=== PATIENT | male | born 1940 | race Caucasian/White ===

== ENCOUNTER 2019-12-18 19:48 | Inpatient (IN) | payer OTHER ==
[2019-12-18 21:27] LABS: Absolute Lymphocytes (CBC) 0.5 K/uL (0.7-4.9); Basophils % 0.2 % (0-1.3); Hematocrit 32.4 % (39.6-49.0); Lymphocytes % 5.6 % (15.3-44.8); MPV 8.5 fL (7.6-11.3)
[2019-12-18 21:31] LABS: Protime INR 1.16
--- NOTE | 2019-12-18 21:40 | ER ---
Nurse's Notes [facility] Name: Elsa Sloan Age: 79 yrs Sex: Male : 1940 Arrival Date: 12/18/2019 Time: 19:50 Bed 17 Private MD: Diagnosis: Pneumonia due to other specified bacteria Presentation: 12/17 19:42 Chief complaint: EMS states: Patient c/o SOB x1 month and cough. He quit smoking 1 week ah ago. Coronavirus screen: Surgical mask placed on patient. Patient moved to private room, placed in contact and droplet isolation with eye protection until further assessment. Patient reports a cough. Patient reports shortness of breath or difficulty breathing. Patient denies measured and/or subjective temperature greater than 100.4F prior to today's visit. Patient denies travel on a cruise ship or to a country the [facility] currently lists as an affected area. Patient denies contact with known and/or suspected case of COVID-19. Ebola Screen: No symptoms or risks identified at this time. Initial Sepsis Screen: Does the patient meet any 2 criteria? HR > 90 bpm. Does the patient have a suspected source of infection?. Risk Assessment: Do you want to hurt yourself or someone else? Patient reports no desire to harm self or others. Onset of symptoms is unknown. Care prior to arrival: Medication(s) given: Normal saline infusion, 200ml 2mg Mag, 125 solumedrol IV initiated. 18 GA, in the right antecubital area, Glucose check: 193 Oxygen administered. via a non-rebreather mask. 19:42 Method Of Arrival: EMS: [facility] 19:42 Acuity: IVET 3 Historical: - PMHx: 20:53 Diabetes - NIDDM; Hypertension; Atrial Fib; blind; ah - Immunization history:: Adult Immunizations unknown. - Social history:: Smoking status: pt quit smoking 1 1/2 weeks ago. Screenin:31 Abuse screen: Denies threats or abuse. Nutritional screening: No deficits noted. Tuberculosis screening: No symptoms or risk factors identified. Fall Risk Secondary diagnosis (15 points) impaired mobility, blind. IV access (20 points). Mental Status- Overestimates/Forgets Limitations (15 pts.). Total Arreguin Fall Scale indicates High Risk Score (45 or more points). Assessment: 21:00 General: Appears uncomfortable, Behavior is cooperative, appropriate for age, anxious. Pain: Complains of pain in chest. Neuro: Level of Consciousness is awake, alert, obeys commands, Oriented to person, place, time, situation, Appropriate for age. Cardiovascular: Capillary refill < 3 seconds Patient's skin is warm and dry. Pulses are palpable in right radial artery and left radial artery Rhythm is atrial fibrillation with rapid ventricular response. Respiratory: Reports shortness of breath at rest Airway is patent Respiratory effort is even, labored, Respiratory pattern is regular, symmetrical. GI: Abdomen is distended, Last BM was December 18, 2019. Bowel sounds present X 4 quads. Reports bloating. Derm: Skin is intact, Wound noted coccyx and gluteal cleft Wound is Red. Vital Signs: 19:42 BP 129 / 75; Pulse 110; Resp 21; Temp 98.1; Pulse Ox 100% on 4 lpm NC; Weight 77.11 kg; Height 6 ft. 0 in. (182.88 cm); Pain 5/10; 20:00 BP 125 / 92; Pulse 124; Resp 26; Pulse Ox 90% ; ah 21:00 BP 141 / 94; Pulse 118; Resp 27; Pulse Ox 98% ; 22:00 BP 110 / 60; Pulse 113; Resp 25; Pulse Ox 99% ; 22:30 BP 118 / 66; Pulse 113; Resp 23; Pulse Ox 99% on 2.5 lpm NC; 19:42 Body Mass Index 23.06 (77.11 kg, 182.88 cm) ED Course: 19:50 Patient arrived in ED. cf2 20:15 Favian Solis MD is Attending Physician. snw 20:30 Nancy Conley, RN is Primary Nurse. 20:41 pt family called for update on pt. contact number son [phone]. daughter in law mw2 [phone]. 20:52 Triage completed. 21:05 Initial lab(s) drawn, by me, sent to lab. First set of blood cultures drawn by me, Flu jp3 and/or RSV swab sent to lab. Strep swab sent to lab. Maintain EMS IV. Dressing intact. Good blood return noted. Site clean \T\ dry. Gauge \T\ site: 20 gauge in RAC. 21:33 Notified ED physician of a critical lab result(s). Bandar Dimer [id number]. sg 21:38 Dimas Franco MD is Hospitalizing Provider. tw4 21:40 Inserted saline lock: 20 gauge in left antecubital area, using aseptic technique. Blood jp3 collected. 21:40 Second set of blood cultures drawn by ak, X-ray(s) taken. jp3 22:05 Extremity Venous Uni Ltd US In Process Unspecified. EDMS 22:24 CXR XRAY In Process Unspecified. EDMS 22:32 Patient has correct armband on for positive identification. Bed in low position. Call light in reach. Side rails up X2. ekg monitor tech on. Pulse ox on. NIBP on. 22:36 Warm blanket given. Verbal reassurance given. jp3 22:36 EKG done, by ED staff, reviewed by Favian Solis MD. Oxygen administration via nasal jp3 cannula \T\ 3L/min. 23:14 Notified ED physician of. sg 23:49 No provider procedures requiring assistance completed. Patient admitted, IV remains in place. Administered Medications: 22:14 Drug: Rocephin - (cefTRIAXone) 1 grams Route: IVPB; Infused Over: 30 mins; Site: right antecubital; 22:15 Drug: AZITHromycin 500 mg Route: IVPB; Infused Over: 1 hrs; Site: right antecubital; 23:39 Drug: Simethicone 240 mg Route: PO; Outcome: 21:39 Decision to Hospitalize by Provider. tw4 23:48 Admitted to [facility] accompanied by tech, room 405, with oxygen, with chart, Report called to NITA Boswell 23:48 Condition: stable 23:48 Instructed on the need for admit. 04 00:11 Patient left the ED. sg Signatures: Dispatcher [employer] EDMS Cam Pond, RN RN Farideh Duncan, CUSTOMS CONSULTANT-C CUSTOMS CONSULTANT-Csnw Favian Solis MD MD tw4 Brenna Hernandez2 Darron Moya jp3 Dimple Leigh 2 Nancy Conley RN RN
--- NOTE | 2019-12-18 21:40 | EDPHYS ---
Physician Documentation [facility] Name: Elsa Sloan Age: 79 yrs Sex: Male : 1940 Arrival Date: 12/18/2019 Time: 19:50 Bed 17 Private MD: ED Physician Favian Solis HPI: 12/18 04:04 This 79 yrs old Male presents to ER via EMS with complaints of Breathing tw4 Difficulty. 04:04 The patient has shortness of breath at rest. tw4 04:08 Onset: The symptoms/episode began/occurred 1 month(s) ago, and became worse yesterday. tw4 Duration: The symptoms are continuous, and are steadily getting worse. The patient's shortness of breath is aggravated by coughing, exertion, is alleviated by nothing. Associated signs and symptoms: Pertinent positives: productive cough, Pertinent negatives: chest pain. Severity of symptoms: At their worst the symptoms were moderate in the emergency department the symptoms are unchanged. The patient has not experienced similar symptoms in the past. Historical: - PMHx: 12/17 20:53 Diabetes - NIDDM; Hypertension; Atrial Fib; blind; ah - Immunization history:: Adult Immunizations unknown. - Social history:: Smoking status: pt quit smoking 1 1/2 weeks ago. ROS: 12/18 04:08 Constitutional: Negative for fever, chills, and weight loss, Eyes: Negative for injury, tw4 pain, redness, and discharge, Cardiovascular: Negative for chest pain, palpitations, and edema, Abdomen/GI: Negative for abdominal pain, nausea, vomiting, diarrhea, and constipation, Back: Negative for injury and pain, MS/Extremity: Negative for injury and deformity, Skin: Negative for injury, rash, and discoloration, Neuro: Negative for headache, weakness, numbness, tingling, and seizure. Respiratory: Positive for cough, dyspnea on exertion, shortness of breath, Negative for Exam: 04:08 Chest/axilla: Normal chest wall appearance and motion. Nontender with no deformity. tw4 No lesions are appreciated. Cardiovascular: Regular rate and rhythm with a normal S1 and S2. No gallops, murmurs, or rubs. Normal PMI, no JVD. No pulse deficits. 04:08 Back: No spinal tenderness. No costovertebral tenderness. Full range of motion. MS/ Extremity: Pulses equal, no cyanosis. Neurovascular intact. Full, normal range of motion. Neuro: Awake and alert, GCS 15, oriented to person, place, time, and situation. Cranial nerves II-XII grossly intact. Motor strength 5/5 in all extremities. Sensory grossly intact. Cerebellar exam normal. Normal gait. 04:08 Constitutional: The patient appears alert, awake, frail, in obvious distress, moderately distressed, pale, uncomfortable. 04:08 Respiratory: mild respiratory distress is noted, Respirations: labored breathing, Breath sounds: decreased breath sounds, that are mild, are heard in the right posterior middle lobe and right posterior lower lobe. 04:08 Abdomen/GI: Inspection: distension, that is mild, Bowel sounds: diminished, Palpation: Vital Signs: 12/17 19:42 BP 129 / 75; Pulse 110; Resp 21; Temp 98.1; Pulse Ox 100% on 4 lpm NC; Weight 77.11 kg; Height 6 ft. 0 in. (182.88 cm); Pain 5/10; 20:00 BP 125 / 92; Pulse 124; Resp 26; Pulse Ox 90% ; ah 21:00 BP 141 / 94; Pulse 118; Resp 27; Pulse Ox 98% ; ah 22:00 BP 110 / 60; Pulse 113; Resp 25; Pulse Ox 99% ; 22:30 BP 118 / 66; Pulse 113; Resp 23; Pulse Ox 99% on 2.5 lpm NC; 19:42 Body Mass Index 23.06 (77.11 kg, 182.88 cm) MDM: 21:37 Patient medically screened. tw4 12/18 04:08 Differential diagnosis: Bronchitis CHF exacerbation, Chronic Obstructive Pulmonary tw4 Disease Myocardial Infarction pneumonia, Pneumothorax pulmonary edema, Pulmonary Embolism reactive airway disease. Antibiotic administration: Rocephin and Zithromax given. Data reviewed: vital signs, nurses notes. Data reviewed: lab test result(s), cardiac enzymes, troponin i, CBC, electrolytes, Flu: negative hepatic panel, EKG, radiologic studies, CT scan, plain films, ultrasound. Data interpreted: Pulse oximetry: Interpretation: hypoxia. Plan: O2 by NC applied. Test interpretation: by ED physician or midlevel provider: ECG, plain radiologic studies. Counseling: I had a detailed discussion with the patient and/or guardian regarding: the historical points, exam findings, and any diagnostic results supporting the discharge/admit diagnosis, lab results, radiology results. Physician consultation: Dimas Franco MD was contacted at 22:05, regarding admission, to the telemetry unit. patient's condition, and will see patient in inpatient room. 12/17 20:28 Order name: Blood Culture Adult (2) 12/17 20:28 Order name: BMP; Complete Time: 23:02 12/17 20:28 Order name: C-Reactive Protein; Complete Time: 23:02 12/17 20:28 Order name: CBC with Diff; Complete Time: 23:02 12/17 20:28 Order name: COVID-19 12/17 20:28 Order name: D-Dimer; Complete Time: 23:02 12/17 20:28 Order name: Ferritin; Complete Time: 23:02 12/17 20:28 Order name: Flu 12/17 20:28 Order name: Lactate; Complete Time: 23:02 12/17 20:28 Order name: LFT's; Complete Time: 23:02 12/17 20:28 Order name: Lipase; Complete Time: 23:02 12/17 20:28 Order name: Procalcitonin; Complete Time: 23:02 12/17 20:28 Order name: PT-INR; Complete Time: 23:02 12/17 20:28 Order name: Ptt, Activated; Complete Time: 23:02 12/17 20:28 Order name: Strep 12/17 20:28 Order name: Troponin (emerg Dept Use Only); Complete Time: 23:02 12/17 20:28 Order name: Urine Microscopic Only 12/17 20:28 Order name: CXR XRAY 12/17 20:28 Order name: EKG; Complete Time: 20:29 12/17 20:28 Order name: Cardiac monitoring; Complete Time: 22:28 12/17 20:28 Order name: Document PUI# 12/17 20:28 Order name: Droplet/Contact Precautions; Complete Time: 22:28 12/17 20:28 Order name: EKG - Nurse/Tech; Complete Time: 22:28 12/17 20:53 Order name: Extremity Venous Uni Ltd US tw4 12/17 21:31 Order name: Manual Differential; Complete Time: 23:02 EDPR 12/17 22:47 Order name: CONS Physician Consult EDPR 12/17 20:28 Order name: IV Start; Complete Time: 22:29 tw4 12/17 20:28 Order name: Labs collected and sent; Complete Time: 22:29 tw4 12/17 20:28 Order [phone]/ tw4 12/17 20:28 Order name: O2 Per Protocol; Complete Time: 21:58 tw4 12/17 20:28 Order name: O2 Sat Monitoring; Complete Time: 21:58 tw4 EC:08 Rate is 112 beats/min. Rhythm is irregularly irregular with Right bundle branch block. tw4 QRS [place] is Normal. AL interval is normal. QRS interval is normal. QT interval is normal. No Q waves. T waves are Normal. No ST changes noted. Clinical impression: Atrial Fibrillation. Interpreted by me. Reviewed by me. Administered Medications: 12/17 22:14 Drug: Rocephin - (cefTRIAXone) 1 grams Route: IVPB; Infused Over: 30 mins; Site: right ah antecubital; 22:15 Drug: AZITHromycin 500 mg Route: IVPB; Infused Over: 1 hrs; Site: right antecubital; 23:39 Drug: Simethicone 240 mg Route: PO; Disposition: 12/18/19 21:39 Hospitalization ordered by Dimas Franco for Inpatient Admission. Preliminary diagnosis is Pneumonia due to other specified bacteria. - Bed requested for Telemetry/MedSurg (Inpatient). - Status is Inpatient Admission. sg - Condition is Stable. - Problem is new. - Symptoms have improved. Signatures: Dispatcher [employer] EDPR Raisa Smith RN RN Cam Pond RN RN sg Therrien, Shelly, FNP-C LEATHA-Favian Brar MD MD tw4 Nancy Conley RN RN Corrections: (The following items were deleted from the chart) 22:00 21:39 Hospitalization Ordered by Dimas Franco MD for Inpatient Admission. Preliminary diagnosis is Pneumonia due to other specified bacteria. Bed requested for Telemetry/MedSurg (Inpatient). Status is Inpatient Admission. Condition is Stable. Problem is new. Symptoms have improved. tw4 22:28 20:28 Joya ordered. tw4 12/18 00:11 12/17 22:00 12/18/2019 21:39 Hospitalization Ordered by Dimas Franco MD for Inpatient sg Admission. Preliminary diagnosis is Pneumonia due to other specified bacteria. Bed requested for Telemetry/MedSurg (Inpatient). Status is Inpatient Admission. Condition is Stable. Problem is new. Symptoms have improved. mw
[2019-12-18 21:50] LABS: ALT/SGPT 121 U/L (12-78); AST/SGOT 146 U/L (15-37); Albumin 2.8 g/dL (3.4-5.0); Alkaline Phosphatase 110 U/L (45-117); BUN Blood Urea Nitrogen 95 mg/dL (7-18); Bicarbonate 19 mmol/L (21-32); Bilirubin Direct < 0.1 mg/dL (0-0.2); Bilirubin Total 0.2 mg/dL (0.2-1.0); Glucose Level 190 mg/dL (74-106); Lipase 43 U/L (73-393); Potassium 5.3 mmol/L (3.5-5.1); Sodium Level 133 mmol/L (136-145); Troponin (Emerg Dept Use Only) < 0.02 ng/mL (0.0-0.045)
[2019-12-18] MEDS ORDERED: NA CHLORIDE 0.9% 250 ML ONE (22:11)
[2019-12-18] MEDS ORDERED: CEFTRIAXONE/SWI 1gm 1 GM/10 ML SYR ONE (22:11)
[2019-12-18] MEDS ORDERED: AZITHROMYCIN 500 MG INJ IVPB ONE (22:11)
[2019-12-18 22:26] LABS: Blood Morphology Comment NOTED (NOT SEEN); Burr Cells 1+; Elliptocytes 1+; Platelet Estimate ADEQ; Poikilocytosis 1+; Teardrop Cell 1+
[2019-12-18] MEDS ORDERED: ONDANSETRON 4 MG/2 ML VIAL IV PRN (22:41)
[2019-12-18] MEDS ORDERED: ACETAMINOPHEN 500 MG TAB PO PRN (22:41)
[2019-12-18] MEDS ORDERED: NA CHLORIDE 0.9% 1,000 ML IV SCH (23:00)
[2019-12-18] MEDS ORDERED: SIMETHICONE 80 MG TAB ONE ×2 (23:45→23:46)
[2019-12-19 00:33] VITALS: BMI 26.8
[2019-12-19] MEDS ORDERED: dexAMETHasone 10 MG/ML VIAL IV SCH (01:00)
[2019-12-19] MEDS: TEMAZEPAM 15 MG CAP PO PRN (01:42)
[2019-12-19] MEDS ORDERED: ENOXAPARIN 40 MG/0.4 ML SQ SCH ×3 (02:00→09:00)
[2019-12-19] MEDS ORDERED: ENOXAPARIN 40 MG/0.4 ML SQ ONE (02:00)
[2019-12-19 02:29] LABS: Urine Appearance CLEAR; Urine Bilirubin NEGATIVE (NEG); Urine Blood NEGATIVE (NEG); Urine Color YELLOW; Urine Glucose NEGATIVE (NEG); Urine Protein TRACE (NEG); Urine Specific Gravity 1.015 (1.005-1.030); Urine Urobilinogen 0.2 mg/dL (0.2-1.0); Urine pH 5.5 (5.0-7.0)
[2019-12-19 02:33] LABS: Urine Microscopic Reflex ORDER UMIC
[2019-12-19 02:34] LABS: Urine Bacteria <20 /HPF (NONE SEEN); Urine Culture Reflex Order NOT NEEDED; Urine RBC <5 /HPF (NONE SEEN)
[2019-12-19] MEDS: MORPHINE 2 MG/ML SYR IV PRN ×2 (02:45→13:39)
[2019-12-19 06:14] LABS: Absolute Lymphocytes (CBC) 0.5 K/uL (0.7-4.9); Basophils % 0.3 % (0-1.3); Hematocrit 31.2 % (39.6-49.0); Lymphocytes % 5.6 % (15.3-44.8); MPV 8.4 fL (7.6-11.3); RBC Red Blood Cell Count 3.62 M/uL (4.33-5.43)
[2019-12-19 06:15] LABS: Protime INR 1.18
[2019-12-19 06:31] LABS: ALT/SGPT 122 U/L (12-78); AST/SGOT 103 U/L (15-37); Albumin 2.8 g/dL (3.4-5.0); Alkaline Phosphatase 109 U/L (45-117); BUN Blood Urea Nitrogen 102 mg/dL (7-18); Bicarbonate 19 mmol/L (21-32); Bilirubin Total 0.2 mg/dL (0.2-1.0); Glucose Level 216 mg/dL (74-106); HDL Cholesterol 50 mg/dL (40-60); LDL Cholesterol, Calculated 29 (<130); Magnesium 2.8 mg/dL (1.8-2.4); NT PRO-BNP 3306 pg/mL (<450); Phosphorus 7.9 mg/dL (2.5-4.9); Sodium Level 133 mmol/L (136-145); Troponin I < 0.02 ng/mL (0.0-0.045)
[2019-12-19 06:45] LABS: Potassium 5.8 mmol/L (3.5-5.1)
--- NOTE | 2019-12-19 08:01 | P.HP ---
Certification for Inpatient Patient admitted to: Inpatient With expected LOS: >2 Midnights Patient will require the following post-hospital care: None Practitioner: I am a practitioner with admitting privileges, knowledge of patient current condition, hospital course, and medical plan of care. Services: Services provided to patient in accordance with Admission requirements found in Title 42 Section 412.3 of the Code of Federal Regulations Patient History Date of Service: 12/19/19 Reason for admission: COVID-19 pneumonia & acute on chronic renal insufficiency History of Present Illness: Patient is a 79-year-old gentleman who is a poor historian and really did not talk to me much at all. The nurse stated he had gotten medications that made him lethargic. Patient presents to the hospital with upper respiratory symptoms. Patient has been coughing and has been congested. Patient was brought into the emergency room per family. Patient denies any sick contacts. He lives with his . Patient was placed on 3 L of oxygen and his oxygen saturations came up to 92%. Patient also has renal insufficiency. He was on IV fluids but he had looks like he has a mildly elevated JVP so I will stop his IV fluids. Patient is also on dexamethasone so will monitor uremic level as well as potassium level closely. Patient will be consulted with Pulmonary and Nephrology. Allergies No Known Allergies Allergy (Verified 08/27/17 14:28) - Past Medical/Surgical History Has patient received pneumonia vaccine in the past: No Diabetic: Yes -: DM -: HTN -: Afib -: blind -: appendectomy - Family History Mother Medical History: Diabetes - Social History Smoking Status: Former smoker Alcohol use: No CD- Drugs: No Caffeine use: Yes Place of Residence: Home Review of Systems Difficult to obtain as he is not interacting much Physical Examination - Vital Signs Temperature: 97.3 F Blood Pressure: 106/68 Pulse: 95 Respirations: 22 Pulse Ox (%): 95 - Physical Exam General: Alert, In no apparent distress, Oriented x1, Other (Does not really talk much per the nurse stated that he does answer her questions appropriately; he is blind) HEENT: Atraumatic, PERRLA, Mucous membr. moist/pink, EOMI, Sclerae nonicteric Neck: Supple, 2+ carotid pulse no bruit, No LAD, Without JVD or thyroid abnormality Respiratory: Diminished, Expiratory wheezes Cardiovascular: Normal S1 S2, Irregular heart rate/rhythm, Systolic murmur Gastrointestinal: Normal bowel sounds, Soft and benign, No tenderness, Distended Musculoskeletal: No clubbing, No tenderness, Swelling Integumentary: No rashes Neurological: Normal speech, Normal tone, Sensation intact, Cranial nerves 3-12 intact, Normal affect, Abnormal strength Lymphatics: No axilla or inguinal lymphadenopathy - Studies Laboratory Data (last 24 hrs) 12/18/19 21:05: PT 13.6 H, INR 1.16, APTT 28.3 12/18/19 21:05: WBC 9.8, Hgb 10.5 L, Hct 32.4 L, Plt Count 305 12/18/19 21:05: Sodium 133 L, Potassium 5.3 H, BUN 95 H, Creatinine 3.53 H, Glucose 190 H, Total Bilirubin 0.2, AST 146 H, ALT 121 H, Alkaline Phosphatase 110, Lipase 43 L Microbiology Data (last 24 hrs): 12/18/19 20:32 Nasopharnyx Influenza Type A Antigen Screen - Final 12/18/19 20:32 Nasopharnyx Influenza Type B Antigen Screen - Final 12/18/19 20:32 Throat Group A Streptococcus Rapid Screen - Final Assessment & Plan - Problems (Diagnosis) (1) COVID-19 virus test result unknown Current Visit: Yes Status: Acute (2) Upper respiratory infection Current Visit: Yes Status: Acute (3) Acute renal insufficiency Current Visit: Yes Status: Acute (4) Elevated JVP (jugular venous pressure) Current Visit: Yes Status: Acute (5) Hyperkalemia Current Visit: Yes Status: Acute (6) History of atrial fibrillation Current Visit: Yes Status: Acute (7) Blind Current Visit: Yes Status: Acute (8) Difficulty hearing Current Visit: Yes Status: Acute - Plan 1. Continue with IV antibiotics 2. Awaiting COVID-19 testing 3. Repeat chest x-ray is symptoms are progressively worsening 4. High-flow oxygen or if not available adjust oxygen as necessary; prone position; 5. Pulmonary consultation and Nephrology 6. Continue with albuterol inhaler therapy; IV dexamethasone; zinc and bayaone-M-rdkmkeg dexamethasone use in a patient with renal insufficiency and hyperkalemia 7. O2 per protocol 8. Patient JVP was elevated so I Hep-Lock IV 9. Repeat labs including D-dimer, ferritin, and CRP and renal function; renal ultrasound pending as well 10. Monitor cardiac status. Patient with a history of atrial fibrillation; check BNP level 11. GI and DVT prophylaxis Discharge Plan: Home Plan to discharge in: Greater than 2 days - Advance Directives Does patient have a Living Will: No Does patient have a Durable POA for Healthcare: No - Code Status/Comfort Care Code Status Assessed: Yes Code Status: Full Code Critical Care: No Time Spent Managing PTS Care (In Minutes): 45
--- NOTE | 2019-12-19 08:56 | EKG ---
Test Date: 2019-12-18 Test Time: 22:23:12 Police Communications Operator: KACI MEASUREMENT RESULTS: Intervals: Rate: 112 AR: QRSD: 136 QT: 342 QTc: 466 [place]: P: AR: QRS: 51 T: -6 INTERPRETIVE STATEMENTS: Atrial fibrillation with rapid ventricular response Right bundle branch block Abnormal ECG Compared to ECG 08/27/2017 13:40:50 Sinus rhythm no longer present Ventricular premature complex(es) no longer present Electronically Signed On 12-19-19 08:55:10 CDT by Tyree Mark
[2019-12-19] MEDS ORDERED: NA CHLORIDE 0.9% 1,000 ML IV SCH (09:00)
[2019-12-19] MEDS ORDERED: AZITHROMYCIN IV 500 MG in NA CHLORIDE 0.9% 250 ML IVPB SCH (09:00)
[2019-12-19] MEDS ORDERED: CEFTRIAXONE/SWI 1gm 1 GM/10 ML SYR IVP SCH (09:00)
[2019-12-19] MEDS ORDERED: dexAMETHasone 4 MG/ML VIAL IV SCH (09:00)
[2019-12-19] MEDS ORDERED: ENOXAPARIN 30 MG/0.3 ML SQ SCH (09:00)
[2019-12-19] MEDS ORDERED: SOD POLYSTYREN SUL 15 GM/60 ML UCUP PO ONE (09:00)
[2019-12-19] MEDS ORDERED: CEFTRIAXONE 1 GM/NS 50 ML 1 GM/50 ML BAG IV SCH (09:00)
[2019-12-19] MEDS: Levofloxacin 250mg IV 250 MG/50 ML BAG IV SCH (10:21)
[2019-12-19] MEDS: ASCORBIC ACID 500 MG TABLET PO SCH (10:22)
[2019-12-19] MEDS: ZINC SULFATE 220 MG CAP PO SCH ×2 (10:22→21:29)
--- NOTE | 2019-12-19 11:40 | CON ---
Date of Consultation: 12/19/2019 Reason For Consultation: Elevated BUN and creatinine, fluid management. History Of Present Illness: This is a pleasant 79-year-old gentleman with significant past medical h istory of hypertension, diabetes complicated with retinopathy, legally blind, no neuropathy, hyperten amauri, hyperlipidemia, AFib. Patient came to the hospital complaining of shortness of breath and coug h with sputum. No fever. No chills for the last couple of weeks. Patient's primary workup showed h ypoxemia, saturation down to 92 on 3 L and elevation in BUN and creatinine. For that reason, we have been consulted. Patient received IV fluid in the emergency room. Patient admits that he has been t aking ibuprofen 4 to 5 tablets daily for the last 2 to 3 months. Patient has nocturia 2 to 3 times. No hesitancy. No leg swelling. Patient had shortness of breath. The patient denied any recent hospitalization. Patient according to him is doing a regular lab every 3 months with his primary care doctor, Dr. Reyna without any problem. Past Medical History: 1.Diabetes. 2.Hypertension. 3.AFib. 4.Diabetes complicated with retinopathy, no neuropathy. Past Surgical History: Appendectomy. Family History: Positive for diabetes and hypertension. Social History: Ex-smoker. Denies alcohol. Denies drug abuse. Allergies: NO KNOWN DRUGS ALLERGY. Home Medications: Not available. Current Medications: In the hospital include vitamin C, breathing treatment, dexamethasone, ceftriax one, Levaquin, temazepam. Review of Systems: Head and Neck: No red eye. No ear pain. Legally blind. GI: No nausea. No vomiting. : No polyuria. No dysuria. No hematuria. BILINGUAL SPEECH THERAPIST: Not applicable. Respiratory: Has shortness of breath, has cough. Cardiovascular: No chest pain. Endocrine: No polydipsia. Skin: No rash. Neuro: Legally blind. Musculoskeletal: Generalized fatigue. Physical Examination: Vital Signs: Blood pressure 106/68, pulse of 95. Afebrile. Chest: Crackles bilateral, more permanent right-sided. Heart: S1, S2. Regular. Systolic murmur. Abdomen: Soft, nontender. Dullness on the suprapubic area with tenderness. No guarding or rebound. Extremities: No edema. Neurological: Alert. Legally blind. No focal. Laboratory Data: WBC 8.7, H and H /31.2, platelet 340. Sodium 133, potassium 5.8, bicarb 19, BUN 102, creatinine 3.3, GFR of 18, calcium 7.6, phosphorus 7.9, magnesium 2.8. BNP 3300. AST and ALT e levated. Reviewing the record for the patient, no available lab, only in the August 2017. At that ti me, creatinine 0.8 with GFR of 88. Chest x-ray showed showing cardiomegaly infiltration on the right side with over volume. Assessment And Plan: 1.Acute kidney injury, multifactorial, secondary to cardiorenal/ERIC secondary to nonsteroidal use, c omplicated with hyperkalemia and acidosis, over volume given the finding on the physical exam. Obstr uctive uropathy need to be ruled out. a.I am going to go ahead and do a bladder scan. b.We will discontinue IV fluid. c.I am going to give the patient Lasix today and we will follow up the patient. We will send for fu ll workup to rule out pulmonary, renal. 2.Acidosis secondary to renal failure. No need for bicarb right now. We will start diuresis and we will monitor. 3.Hyperkalemia secondary to renal failure. We will start the diuresis. 4.Congestive heart failure. We will get echocardiogram. 5.Pneumonia. Questionable coronavirus disease pneumonia. We will follow up with Pulmonary. Contin ue current antibiotic. 6.Chronic obstructive pulmonary disease exacerbation by the Pulmonary. Case discussed with the patient, verbalized understanding, discussed with the staff, agreed on the pl an. WAGNER/AYESHA Voice ID: [id number] Report ID: [id number]
--- NOTE | 2019-12-19 11:53 | P.CNS ---
Date of Consult: 12/19/19 Reason for Consult: Abnormal chest x-ray Chief Complaint: COVID-19 pneumonia & acute on chronic renal insufficiency History of Present Illness: Patient is 79 years of age a poor historian admitted to the hospital is been complaining of chronic dyspnea he is an active smoker just quit recently feeling weak complaining of cough congestion probably has underlying COPD has a nebulizer at home also has some renal failure patient denies any symptoms of fever or cough at home Allergies No Known Allergies Allergy (Verified 08/27/17 14:28) - Past Medical/Surgical History Diabetic: Yes -: DM -: HTN -: Afib -: blind -: appendectomy - Family History Mother Medical History: Diabetes - Social History Alcohol use: No CD- Drugs: No Caffeine use: Yes Place of Residence: Home Review of Systems General: Weakness Respiratory: Cough, Shortness of Breath Physical Examination Temp Pulse Resp BP Pulse Ox 97.3 F 95 H 22 H 106/68 95 12/19/19 08:08 12/19/19 08:08 12/19/19 08:08 12/19/19 08:08 12/19/19 08:08 General: Other (To for) Laboratory Data (last 24 hrs) 12/18/19 21:05: PT 13.6 H, INR 1.16, APTT 28.3 12/18/19 21:05: WBC 9.8, Hgb 10.5 L, Hct 32.4 L, Plt Count 305 12/18/19 21:05: Sodium 133 L, Potassium 5.3 H, BUN 95 H, Creatinine 3.53 H, Glucose 190 H, Total Bilirubin 0.2, AST 146 H, ALT 121 H, Alkaline Phosphatase 110, Lipase 43 L - Problems (1) Abnormal chest x-ray Current Visit: Yes Status: Acute Plan: Patient is 89 years of age admitted with shortness of breath. Chest x-ray is very abnormal shows a right mid zone opacity possibly lung cancer I have ordered a CT scan of the chest doubt perez virus infection vital signs are stable type suspect he has chronic renal failure is creatinine is very elevated so was is potassium will check a room air pulse ox ambulate patient he will need to be worked up as an outpatient discharged today after the CT scan
--- NOTE | 2019-12-19 12:07 | RAD REPORT ---
EXAM DESCRIPTION: US - Extremity Venous Uni Ltd - 12/18/2019 10:35 pm CLINICAL HISTORY: SWELLING Leg swelling and edema. COMPARISON: No comparisons FINDINGS: Right lower extremity venous system was interrogated with Doppler technique. Normal flow, compressibility and augmentation was noted. There is no DVT present. IMPRESSION: No evidence of right lower extremity deep venous thrombosis.
--- NOTE | 2019-12-19 12:24 | RAD REPORT ---
EXAM DESCRIPTION: RAD - Chest Single View - 12/18/2019 10:24 pm CLINICAL HISTORY: Cough;SOB Chest pain. COMPARISON: Outpt Chest Pa/Lat (2 Views) dated 08/27/2017 FINDINGS: Portable technique limits examination quality. Moderate airspace opacity is present in the right mid lung with reduced right lung volume seen. Pneum onia is a possibility. The left lung is grossly clear. The heart is moderately enlarged in size. No d isplaced fractures.
[2019-12-19] MEDS: FUROSEMIDE 40 MG/4 ML VIAL IV SCH (12:41)
[2019-12-19 14:23] LABS: Urine Appearance CLEAR; Urine Bilirubin NEGATIVE (NEG); Urine Blood NEGATIVE (NEG); Urine Color YELLOW; Urine Glucose NEGATIVE (NEG); Urine Protein TRACE (NEG); Urine Specific Gravity 1.015 (1.005-1.030); Urine Urobilinogen 0.2 mg/dL (0.2-1.0)
[2019-12-19 14:31] LABS: Urine Microscopic Reflex ORDER UMIC; Urine Protein/Creatinine Ratio 0.41 ratio (<0.15)
[2019-12-19 14:33] LABS: Urine Bacteria <20 /HPF (NONE SEEN); Urine Culture Reflex Order NOT NEEDED; Urine RBC <5 /HPF (NONE SEEN)
[2019-12-19 15:18] LABS: Potassium 5.9 mmol/L (3.5-5.1)
[2019-12-19] MEDS ORDERED: ALBUTEROL 2.5 MG/3 ML NEB SOL NEB ONE (16:48)
[2019-12-19] MEDS ORDERED: D50W 25 GM/50 ML SYRINGE/VIAL IV ONE (16:49)
[2019-12-19] MEDS ORDERED: D50W 25 GM/50 ML SYRINGE/VIAL IV PRN ×2 (16:50→19:25)
[2019-12-19] MEDS ORDERED: GLUCAGON 1 MG/VIAL IM PRN ×2 (16:50→19:25)
[2019-12-19] MEDS ORDERED: INSULIN -REGULAR HUMAN 50 UNIT/0.5 ML ML IV ONE (16:52)
--- NOTE | 2019-12-19 17:19 | RAD REPORT ---
EXAM DESCRIPTION: CT - Thorax Wo Con CLINICAL HISTORY: Chest pain Right lung mass COMPARISON: No comparisons FINDINGS: A moderate to large area of airspace consolidation is new right upper lobe extending from the right hilum. The areas of infiltrate extend into the right middle lobe and both posterior gutters . Loculated small right pleural effusion. Free-flowing small left pleural effusion. Moderate pericard ial fluid is seen. No pneumothorax. No bulky intrathoracic adenopathy. No concerning bony finding. No gross upper abdominal finding. All CT scans are performed using dose optimization technique as appropriate and may include automated exposure control or mA/KV adjustment according to patient size. IMPRESSION: Extensive right-sided pneumonia pattern is suspected. There is loculated right pleural e ffusion seen. Left base infiltrate is also present with a small left pleural effusion. Moderate pericardial effusio n.
[2019-12-19] MEDS: predniSONE 20 MG TAB PO SCH (21:29)
[2019-12-19] MEDS: INSULIN -REGULAR HUMAN 50 UNIT/0.5 ML ML SQ SCH (21:47)
[2019-12-20] MEDS ORDERED: ALBUMIN HUMAN 25% 100 ML IV ONE (01:01)
[2019-12-20] MEDS: ALBUTEROL INHALER 60 PUFF/8 GM IH PRN (05:44)
[2019-12-20] MEDS: FUROSEMIDE 40 MG/4 ML VIAL IV SCH ×2 (08:00→21:58)
[2019-12-20] MEDS: ASCORBIC ACID 500 MG TABLET PO SCH (08:00)
[2019-12-20] MEDS: MORPHINE 2 MG/ML SYR IV PRN (08:00)
[2019-12-20] MEDS: ENOXAPARIN 30 MG/0.3 ML SQ SCH (08:00)
[2019-12-20] MEDS: predniSONE 20 MG TAB PO SCH (08:00)
[2019-12-20] MEDS: Levofloxacin 250mg IV 250 MG/50 ML BAG IV SCH (08:00)
[2019-12-20] MEDS: ZINC SULFATE 220 MG CAP PO SCH ×2 (08:00→21:45)
[2019-12-20 08:22] LABS: RBC Red Blood Cell Count 3.42 M/uL (4.33-5.43)
[2019-12-20 08:39] LABS: Albumin 3.1 g/dL (3.4-5.0); Bilirubin Total 0.2 mg/dL (0.2-1.0); Protein, Total 7.1 g/dL (6.4-8.2)
[2019-12-20 08:40] LABS: Potassium 5.8 mmol/L (3.5-5.1)
[2019-12-20 08:41] LABS: Albumin 3.1 g/dL (3.4-5.0); BUN Blood Urea Nitrogen 110 mg/dL (7-18); Bicarbonate 21 mmol/L (21-32); Ferritin 44.7 ng/mL (26-388); Folic Acid, (Folate) 19.7 ng/mL (3.1-17.5); Glucose Level 249 mg/dL (74-106); Phosphorus 8.2 mg/dL (2.5-4.9); Potassium 5.8 mmol/L (3.5-5.1); Sodium Level 132 mmol/L (136-145); Transferrin 226 mg/dL (200-360); Troponin I < 0.02 ng/mL (0.0-0.045); Uric Acid 11.6 mg/dL (3.5-7.2)
[2019-12-20] MEDS: INSULIN -REGULAR HUMAN 50 UNIT/0.5 ML ML SQ SCH ×4 (08:45→22:11)
[2019-12-20] MEDS ORDERED: PNEUMOCOCCAL VACCINE 0.5 ML IMVAC ONE (09:00)
--- NOTE | 2019-12-20 10:24 | P.PN ---
Subjective Date of Service: 12/20/19 Chief Complaint: Lung mass Patient is still feeling very weak, short of breath worsening renal function hyperkalemia Review of Systems General: Weakness Respiratory: Cough, Shortness of Breath Gastrointestinal: Nausea Physical Examination - Vital Signs Temperature: 97.2 F Blood Pressure: 121/67 Pulse: 89 Respirations: 22 Pulse Ox (%): 93 - Physical Exam General: Alert, Moderate distress Respiratory: Expiratory wheezes Cardiovascular: No edema, Normal S1 S2 Assessment & Plan - Problems (Diagnosis) (1) Lung mass Current Visit: Yes Status: Acute Plan: I suspect patient has lung cancer CT scan reviewed is quite possible that this is a pneumonia continue with antibiotics poly need a bronchoscopy for failure to clear also has some pleural effusion made secondary to volume overload patient's perez virus test is pending (2) Acute renal insufficiency Current Visit: Yes Status: Acute Plan: Patient has renal failure seen by Nephrology hyperkalemia
[2019-12-20] MEDS ORDERED: SOD POLYSTYREN SUL 15 GM/60 ML UCUP PO ONE (11:00)
[2019-12-20] MEDS: DOXYCYCLINE 100 MG CAP PO SCH ×2 (11:59→21:45)
[2019-12-20] MEDS ORDERED: D50W 25 GM/50 ML SYRINGE/VIAL IV ONE (12:42)
[2019-12-20] MEDS ORDERED: D50W 25 GM/50 ML SYRINGE/VIAL IV PRN (12:43)
[2019-12-20] MEDS ORDERED: GLUCAGON 1 MG/VIAL IM PRN (12:43)
[2019-12-20] MEDS ORDERED: INSULIN -REGULAR HUMAN 50 UNIT/0.5 ML ML IV ONE (13:30)
[2019-12-20] MEDS ORDERED: SOD FERRIC GLUC COMPLX/SUCROSE 250 MG in NA CHLORIDE 0.9% 250 ML IV SCH (14:00)
[2019-12-20] MEDS: DULERA 200/5 (MOMETASONE/FORMOTEROL) INHALER IH SCH ×2 (17:31→21:46)
--- NOTE | 2019-12-20 17:35 | PN ---
Date of Progress Note: 12/20/2019 History: Patient was admitted with acute kidney injury secondary to nonsteroidal use. Patient had o liguria. Physical Examination: Vital Signs: Blood pressure 121/67, pulse of 89, afebrile. Chest: Crackles bilateral. Heart: S1, S2. Systolic murmur. Abdomen: Soft, nontender. Dullness on the suprapubic area. Extremities: No edema. Laboratory Data: H and H 04/16.2. Sodium 130, potassium 5.8, bicarb 20, BUN 116, creatinine 4.1, ca lcium 7.4, iron saturation 6.3, ferritin 44. Serum protein electrophoresis is still pending. TSH 2. 9, folate 19. WBC 8.7, H and H 04/16.2, platelet 340. Current Medications: The patient on include doxycycline, Levaquin, Lovenox, Lasix 40, Kayexalate, Zo mitch, and prednisone. Laboratory Data: CT of the chest showing pneumonia, bilateral, more prominent on the right with manasa cardial effusion. Assessment And Plan: 1.Acute kidney injury, obstructive uropathy has been ruled out secondary to nonsteroidal use/questio nable of pulmonary renal/secondary to coronavirus disease nephropathy, proteinuric, oliguric, non-nep hrotic over volume with hyperkalemia and marginal acidosis. No other significant uremic symptoms. I had long discussion with the patient and his both sons over the phone regarding the prognosis and th e need to initiate renal replacement therapy. Family on agreement. Patient on agreement. We are go ing to go ahead and proceed with catheter placement and initiate renal replacement therapy with hemod ialysis. 2.Hypertension, currently blood pressure on the lower side. We will utilize the blood pressure to e stablish better volume control. I am going to go ahead and increase his Lasix to b.i.d. we will mon itor the patient. Keep hold the rest of his blood pressure medications. 3.Anemia of iron deficiency anemia/chronic kidney disease. We are going to start the patient on IV iron. 4.Hyperkalemia secondary to renal failure, status post treatment. We will give again the cocktail o f D50 with insulin. Unfortunately, could not give nebulizers giving coronavirus disease questionable . 5.Pneumonia bilateral, questionable coronavirus disease pneumonia. Follow up with Pulmonary. Manpreet nue current treatment. BERNARD/MODL Voice ID: [id number] Report ID: [id number]
[2019-12-20 18:52] LABS: Albumin 3.1 g/dL (3.4-5.0); Phosphorus 8.5 mg/dL (2.5-4.9)
--- NOTE | 2019-12-20 20:59 | RAD REPORT ---
EXAM DESCRIPTION: US - Renal Ultrasound-Complete - 12/20/2019 7:59 pm CLINICAL HISTORY: MAULIK COMPARISON: None FINDINGS: The right kidney measures 11.8 x 5.0 x 4.9 cm. The left kidney measures 11.9 x 5.3 x 5.0 cm. Renal cortical thickness and echogenicity are normal. Moderate severity hydronephrosis of the rig ht kidney is present extending into the ureter. Distal ureter is obscured. No hydronephrosis of the l eft kidney. Bladder is mostly contracted limiting accurate assessment. IMPRESSION: Moderate severity right-sided hydronephrosis. No left-sided hydronephrosis.
[2019-12-20] MEDS: predniSONE 10 MG TAB PO SCH (21:45)
[2019-12-20] MEDS: TEMAZEPAM 15 MG CAP PO PRN (21:45)
[2019-12-21 05:43] LABS: Protime INR 1.34
[2019-12-21 05:50] LABS: Absolute Lymphocytes (CBC) 0.5 K/uL (0.7-4.9); Basophils % 0.1 % (0-1.3); Hematocrit 31.4 % (39.6-49.0); Lymphocytes % 3.5 % (15.3-44.8); MPV 8.7 fL (7.6-11.3); RBC Red Blood Cell Count 3.63 M/uL (4.33-5.43)
[2019-12-21 06:44] LABS: BUN Blood Urea Nitrogen 125 mg/dL (7-18); Bicarbonate 21 mmol/L (21-32); Glucose Level 186 mg/dL (74-106); Magnesium 2.8 mg/dL (1.8-2.4); Sodium Level 132 mmol/L (136-145); Troponin I < 0.02 ng/mL (0.0-0.045)
[2019-12-21 06:48] LABS: Phosphorus 8.9 mg/dL (2.5-4.9); Potassium 5.8 mmol/L (3.5-5.1)
[2019-12-21] MEDS: INSULIN -REGULAR HUMAN 50 UNIT/0.5 ML ML SQ SCH ×4 (07:30→21:00)
[2019-12-21 08:56] LABS: Rheumatoid Factor NEG (NEG)
[2019-12-21] MEDS: DULERA 200/5 (MOMETASONE/FORMOTEROL) INHALER IH SCH ×2 (09:00→21:42)
[2019-12-21] MEDS: ZINC SULFATE 220 MG CAP PO SCH ×2 (09:00→21:41)
[2019-12-21] MEDS: ENOXAPARIN 30 MG/0.3 ML SQ SCH (09:00)
[2019-12-21] MEDS: DOXYCYCLINE 100 MG CAP PO SCH ×2 (09:00→21:41)
[2019-12-21] MEDS: predniSONE 10 MG TAB PO SCH ×2 (09:00→21:41)
[2019-12-21] MEDS: ASCORBIC ACID 500 MG TABLET PO SCH (09:00)
[2019-12-21] MEDS: FUROSEMIDE 40 MG/4 ML VIAL IV SCH ×2 (09:30→21:42)
[2019-12-21] MEDS: Levofloxacin 250mg IV 250 MG/50 ML BAG IV SCH (09:30)
[2019-12-21 09:31] LABS: Anisocytosis 1+; Burr Cells 1+; Elliptocytes 1+; Poikilocytosis 1+
[2019-12-21 09:54] LABS: Platelet Estimate ADEQ
[2019-12-21] MEDS ORDERED: NA CHLORIDE 0.9% 500 ML ONE (10:00)
[2019-12-21] MEDS ORDERED: INSULIN -REGULAR HUMAN 50 UNIT/0.5 ML ML ONE (10:10)
[2019-12-21] MEDS ORDERED: D50W 25 GM/50 ML SYRINGE/VIAL IV ONE (10:11)
[2019-12-21] MEDS ORDERED: NS 0.9% VIAL 30 ML ONE (10:25)
[2019-12-21] MEDS ORDERED: propofoL 200 MG/20 ML VIAL IV ONE (10:25)
[2019-12-21] MEDS ORDERED: Phenylephrine HCl 10 MG/ML 1 ML VIAL ONE (10:25)
[2019-12-21] MEDS ORDERED: LIDOCAINE 2% MPF 5 ML VIAL ONE (10:25)
[2019-12-21] MEDS ORDERED: NS 0.9% VIAL 10 ML ONE (10:37)
[2019-12-21] MEDS ORDERED: BUPIVACA 0.25%/EPI 0.0005%/PF 30 ML VIAL ONE (10:38)
[2019-12-21] MEDS ORDERED: HEPARIN 5000 UNIT/ML 1 ML VIAL ONE (10:38)
[2019-12-21 10:56] LABS: Blood Morphology Comment NOTED (NOT SEEN)
--- NOTE | 2019-12-21 11:23 | P.OP ---
Preoperative diagnosis: Need for Hemodialysis Postoperative diagnosis: Need for Hemodialysis Primary procedure: Placement of Tunnelled Hemodialysis Catheter Secondary procedure: Ultrasound used and interpreted Other procedure(s): Flouroscopy used and interpreted Anesthesia: MAC + Local Estimated blood loss: <10cc Specimen: None Findings: Dark, Non-pulsatile blood returned Complications: None Implants: Tunnelled 24cm hemodialysis catheter used Transferred to: Recovery Room Condition: Fair
--- NOTE | 2019-12-21 11:37 | RAD REPORT ---
EXAM DESCRIPTION: RAD - Fluoroscopy <1 Hour - 12/21/2019 11:31 am CLINICAL HISTORY: Venous catheter insertion. HEMOSPLIT CATH PLACEMENT IN OR 4 COMPARISON: No comparisons FINDINGS: Fluoroscopic imaging is submitted from placement of a venous catheter. Details of the pro cedure not available. Fluoroscopy time: 0.4 minutes
--- NOTE | 2019-12-21 11:51 | CON ---
Date of Consultation: 12/21/2019 Brief History Of Present Illness: Patient is a 79-year-old gentleman, a poor historian who did not talk to me much at all other than simple single words, but he appeared lethargic through the majority of my examination. As such, much of the information is obtained from the chart and from omar gonzalez patient's , who I spoke with on the phone. The patient was brought to the hospital for upper r espiratory symptoms. He had been coughing, congested, and he was brought to the emergency room with the above-stated complaints. He denies any sick contacts, recent travel. He lives with his . Marley gonzalez was placed on oxygen and his saturations came to 90%. He had some history of renal insufficiency a nd is found to have profound renal insufficiency upon presentation to the hospital. I was consulted when the patient continued to be profoundly uremic with worsening hyperkalemia and hyperphosphatemia and as such the patient is a candidate for tunneled hemodialysis catheter and as such I was consulted for the above-stated issue. Past Medical History: For diabetes, hypertension, atrial fibrillation. He is blind and has a large right cataract. Past Surgical History: Includes only an appendectomy. Family History: He has a long smoking history. Denies alcohol or recreational drug use. Review of Systems: 10 point review of systems is unable to obtain as the patient is not compliant with much of my examin ation and questions. Allergies: NO KNOWN DRUG ALLERGIES. Home Medications: Include insulin, Zestril, metformin, pravastatin, Zoloft, and Flomax. Physical Examination: Vital Signs: At the time of my examination, his blood pressure 128/61, heart rate is 123, respirator y rate 16, temperature 97.2. General: He is awake, but lethargic. Psychiatric: He answers some questions with single word and short sentences, but does not interact e nough to get a reasonable examination other than as stated above. HEENT: He is normocephalic, he has cataracts, right significantly worse than left. His oropharynx is clear. His mucous membranes are moist. Neck: Supple. He does have some mild JVD. Chest: Normal expansion and excursion. Cardiovascular: Regular rate and rhythm. Pulmonary: Decreased breath sounds bilaterally. Abdomen: Soft. Extremities: No clubbing, cyanosis, or edema. Skin: Warm and dry. Laboratory Data: Reveals a white blood cell count of 14.7, hemoglobin 9.8, hematocrit of 31.4, plate let count is 280, neutrophils 87%. His PT was 15.7, INR 1.34. His PTT is 38.7. Sodium 132, potassi um 5.8, chloride 96, carbon dioxide is 21, BUN 125, creatinine 4.3, glucose was 186. His calcium 7.2 . His phosphorus is 8.9. His magnesium 2.8. Troponin was less than 0.02 on 2 subsequent checks. P TH 290. He had imaging performed, which included a CT of the chest, which is officially read as exte nsive right-sided pneumonia pattern is suspected. There is loculated right pleural effusion seen. L eft base infiltrate is also present with small left pleural effusion, moderate pericardial effusion. He had an extremity venous study as well on 12/17, which was officially read as no evidence of right lower extremity DVT. He had a COVID test, which I was informed was negative. I do not have this av ailable for my review at this point. Assessment And Plan: This is a 79-year-old male who comes in with acute on chronic renal insufficien cy and worsening electrolyte abnormalities, who is now a candidate for hemodialysis initiation. I have explained the risks, benefits, and alternatives of placement of a tunneled hemodialysis cathet er to his and the patient. The risks include, but were not limited to bleeding, infection, maliha ge to surrounding tissues, pneumothorax, need for further operation procedures, patient and his agrees to proceed as indicated. BEBETO/AYESHA Voice ID: [id number] Report ID: [id number]
--- NOTE | 2019-12-21 12:00 | RAD REPORT ---
EXAM DESCRIPTION: RAD - Chest Single View - 12/21/2019 11:51 am CLINICAL HISTORY: POST HD CATH INSERTION Chest pain. COMPARISON: Chest Single View dated 12/18/2019 FINDINGS: Portable technique limits examination quality. Right-sided venous catheter has tip in the SVC. No pneumothorax. Right lung opacities appear mildly i mproved since comparative study. Heart size is moderately enlarged. IMPRESSION: No postprocedure pneumothorax.
--- NOTE | 2019-12-21 12:09 | OP ---
Date of Procedure: 12/21/2019 Surgeon: Jah Yanez MD, Brief History Of Present Illness: Patient is a 79-year-old male who came to the hospital with multip le medical problems and respiratory insufficiency, acute renal insufficiency on top of chronic renal insufficiency. He had worsening uremia and as such, he was deemed appropriate for hemodialysis initi ation. Preoperative Diagnosis: Need for hemodialysis. Postoperative Diagnosis: Need for hemodialysis. Procedure Performed: 1.Placement of a tunneled hemodialysis catheter. 2.Ultrasound interpretation and guidance utilized. 3.Fluoroscopy utilized and interpreted. Anesthesia: MAC plus local with 0.5% Marcaine with epinephrine. Estimated Blood Loss: Less than 10 mL. Specimen: None. Findings: Dark, nonpulsatile blood return. Complications: None. Implants: Tunneled 24 cm hemodialysis catheter used. Disposition: Transferred to recovery room in fair condition. Procedure In Detail: After informed consent was obtained, patient was brought to the operating room, prepped and draped in the usual sterile fashion. After adequate anesthesia was achieved, patient wa s placed in steep Trendelenburg position. Ultrasound guidance was used to allow for anesthesia of th e right internal jugular vein. The area was appropriately anesthetized at this time and a microintro ducer set was then used to puncture the right internal jugular vein on the first attempt. Dark red, nonpulsatile blood returned, using fluoroscopy guidance confirmed the position. A microwire was adva nced easily without evidence of complication. Fluoroscopy was then used to confirm position. At thi s point, the needle being removed was placed on the back table and a small steve incision was made at the insertion site. A microintroducer sheath was then placed and the was microwire was removed and a standard 24 cm kit was brought on the table and the standard wire was placed through the introducer sheath after removing the inner cannula. Fluoroscopy was once again used to verify position of the w maria l in the SVC, which was verified at this time. The microintroducer sheath was removed and a small gauze was placed over this area. The tract was then appropriately anesthetized inferior to the clavi da and an incision was made in the skin using 11 blade down to subcutaneous tissues. The tunneling device was then used to bring the 24 cm HemoSplit catheter over the collar bone and out through the i nsertion site without evidence of complication. Being sized appropriately, it was positioned and the sequential dilatation was performed using Seldinger technique over the wire and the wire was removed at this point after the introducer sheath was placed. At this point, the hemodialysis catheter was placed through the introducer sheath and the sheath was removed and x-ray and fluoroscopy confirmed p osition of the catheter to be at the confluence of the SVC. Both ports che dark red and nonpulsatil e blood easily and flushed quite easily and both were packed with super flush 3000 units/mL and the a jose l was cleansed and the catheter was secured to the chest using 2-0 nylon suture as well as closing the insertion site with 3-0 nylon suture and a sterile dressing placed over top. The patient was the n placed in the normal anatomic position, out of Trendelenburg. The patient tolerated the procedure well without evidence of complication, transferred to the PACU in good condition. All counts were co rrect at the end of the case. BEBETO/AYESHA Voice ID: [id number] Report ID: [id number]
[2019-12-21] MEDS ORDERED: SOD POLYSTYREN SUL 15 GM/60 ML UCUP PO ONE ×2 (16:00→20:00)
--- NOTE | 2019-12-21 16:41 | P.PN ---
Subjective Date of Service: 12/21/19 Primary Care Provider: None Chief Complaint: Lung mass Subjective: Other (Patient stable this time. Patient to have dialysis catheter placed) Physical Examination - Vital Signs Temperature: 96.8 F Blood Pressure: 107/52 Pulse: 100 Respirations: 21 Pulse Ox (%): 94 - Physical Exam General: Alert, Cooperative HEENT: Atraumatic Neck: Supple Respiratory: Clear to auscultation bilaterally, Normal air movement Cardiovascular: Irregular heart rate/rhythm (AFib rate controlled) Gastrointestinal: Normal bowel sounds Integumentary: No warmth, No cyanosis Neurological: Normal speech, Normal strength at 5/5 x4 extr, Normal tone, Normal affect - Studies Medications List Reviewed: Yes Assessment & Plan Discharge Plan: Home Plan to discharge in: Greater than 2 days Physician Review Additional Text: Impression: Acute on chronic renal failure stage 5 now end-stage renal disease, hyperkalemia requiring emergent dialysis with ultrasound showing right-sided hydronephrosis Acute on chronic CHF likely diastolic Bilateral pleural effusion with pericardial effusion Chronic atrial fibrillation COPD Diabetes mellitus type 2 Hypertension Elevated liver function likely related to liver failure related to above Patient is blind Patient with difficulty hearing Plan: Acute on chronic renal failure stage 5 now end-stage renal disease, hyperkalemia requiring emergent dialysis with ultrasound showing right sided hydronephrosis: Patient to have catheter placed for emergent dialysis. Case discussed with surgery. Will also discuss with nephrology about emergent dialysis. Will also discuss with nephrology about finding of pericardial effusion and right-sided hydronephrosis. Acute on chronic CHF likely diastolic: Continue oxygen. Continue support. Will monitor closely. Bilateral pleural effusion with large pericardial effusion: Spoke to Cardiology. Patient has large pericardial fusion. Blood pressure and heart rate stable. Hopefully with dialysis this will improve. Otherwise patient may require pericardial window. Will discuss further with nephrology and cardiology. Will need to monitor closely. COPD: Continue with current medication. Patient on antibiotic therapy to cover for possible atypical pneumonia Chronic atrial fibrillation: Continue anti coagulation therapy Diabetes mellitus type 2 with hyperglycemia on insulin medication: Monitor sliding scale. Continue insulin as needed. will consider basal insulin. Hypertension: Will provide medication Hyperlipidemia: Continue medication Elevated liver function likely related to liver failure related to above: Continue as above Patient is blind: Overall stable Patient with difficulty hearing: Stable Time Spent Managing Pts Care (In Minutes): 55
[2019-12-21] MEDS: SEVELAMER CARBONATE 800 MG TABLET PO SCH (17:00)
[2019-12-21] MEDS ORDERED: ATORVASTATIN 10 MG TAB PO SCH (21:00)
[2019-12-21] MEDS ORDERED: HOME MED 1 EA UNK (Pravastatin Sodium [Pravastatin Sodium] 1 TAB) PO SCH (21:00)
--- NOTE | 2019-12-21 22:42 | CON ---
Date of Consultation: 12/21/2019 Reason For Consultation: Pericardial effusion. History Of Present Illness: 79-year-old male was admitted initially with acute renal failure, very p oor historian and apparently started on dialysis recently had an echocardiogram done because the CT s can showed pericardial effusion. The echo reported significant pericardial effusion and was reviewed by myself showing signs of large pericardial effusion and early signs of tamponade. However, regino andino was seen by bedside. He is stable and has some shortness of breath but he is speaking in full sent ences. There is no chest pain. His blood pressure has been maintained at stable level. Past Medical History: Diabetes, hypertension, and AFib. Past Surgical History: Appendectomy. Family History: Diabetes, mother's side. Social History: Does not smoke or drink. Does not use any drugs. Review of Systems: All systems reviewed and they were negative except for mentioned in the HPI. Physical Examination: Vital Signs: Temperature is 96.8, heart rate is 95, breathing at 18, blood pressure 124/66, saturati ng 98%. General: This is an elderly male, in no distress. Head and Neck: Pupils are reactive to light. Positive JVD. No cervical lymphadenopathy. Neck is s upple. Thyroid not enlarged. Lungs: Clear to auscultation bilaterally. No rhonchi, wheeze, or crackles. Heart: Regular. No extra sounds. Abdomen: Soft, nontender. Bowel sounds positive. No organomegaly. No masses or hernia. No rigidi ty or rebound. Extremities: Edema bilaterally. No clubbing, or cyanosis. Intact pulses. Skin: No rash. Neurologic: Alert, awake. No acute focal deficits appreciated. Investigations: Creatinine is 4.3, potassium 5.8, and troponin less than 0.02. Assessment And Plan: Significant pericardial effusion. Clinically, he is not in tamponade. He is m aintaining good blood pressure and good heart rate. However, there is large pericardial effusion, li terence due to end-stage renal disease and fluid retention. The patient is being dialyzed now. I recom mend a followup focused echo tomorrow to evaluate and if there is no improvement, a pericardiocentesi s with a drain might be warranted and this can be done on an urgent basis if the patient's condition deteriorates. Otherwise, recommend fluid management for removal using dialysis at this point and a f ull echo evaluation post removal of fluids to evaluate the heart function very well and further chloe p to be done if needed. SR/MODL Voice ID: [id number] Report ID: [id number]
--- NOTE | 2019-12-21 23:57 | PN ---
Date of Progress Note: 12/21/2019 Chief Complaint: Acute on chronic kidney injury. History Of Present Illness: Patient presented to the hospital because of generalized weakness. He w as found to have elevated BUN and creatinine level. Urine output has not improved and BUN is over 10 0. Patient is to start dialysis and catheter procedure was done today to obtain a dialysis access. BUN today is 125, creatinine 4.3, sodium 132, potassium 5.8, glucose 189, phosphorus 8.9, calcium 7.2 , and magnesium 2.8. Patient has severe acute on chronic kidney injury secondary to nonsteroidal anti-inflammatory medicat ion. Patient developed oliguria. Review of Systems: Denies PND, orthopnea. Physical Examination: Lungs: Diminished breath sounds at bases. Heart: S1, S2. Abdomen: Soft, benign. Extremities: No edema. Laboratory Data: Lab work showed sodium 132, potassium 5.8, chloride 96, CO2 21, BUN 125, creatinine 4.3, glucose 186, calcium 7.9, phosphorus 8.9, magnesium 2.8. Impression And Plan: 1.Severe hyperazotemia, acute kidney injury. Patient will continue dialysis. Monitor for any evide nce of renal function recovery. CT scan of the chest showed pneumonia and bilateral infiltrates with right pleural effusion. Continue to monitor fluid balance and antibiotics will be adjusted by prima ry team and Pulmonary team. 2.Hypertension. Currently, blood pressure is borderline diminished. Patient has fluid overload and was started on Lasix. Plan is to advance ultrafiltration with dialysis if blood pressure remain sta ble. 3.Hyperkalemia secondary to renal failure. Patient was treated with Kayexalate. Dialysis was done with 2 potassium dialysate. Pulmonary service is consulted to rule out Coronavirus infection. EB/MODL Voice ID: [id number] Report ID: [id number]
[2019-12-22 06:52] LABS: Albumin 2.9 g/dL (3.4-5.0)
[2019-12-22 06:57] LABS: Potassium 5.6 mmol/L (3.5-5.1)
--- NOTE | 2019-12-22 08:24 | ECHO ---
HEIGHT: 6 ft 0 in WEIGHT: 196 lb 14.4 oz DATE OF STUDY: 12/21/[address]: Elsie Ornelas MD 2-DIMENSIONAL: YES M.MODE: YES DOPPLER: YES COLOR FLOW: YES TDS: NO PORTABLE: NO DEFINITY: NO BUBBLE STUDY: NO DIAGNOSIS: CONGESTIVE HEART FAILURE CARDIAC HISTORY: CATHERIZATION: [*] SURGERY: PROSTHETIC VALVE: PACEMAKER: MEASUREMENTS (cm) DIASTOLIC (NORMALS) SYSTOLIC (NORMALS) IVSd 1.0 (0.6-1.2) LA Diam (1.9-4.0) LVEF 67% LVIDd 4.9 (3.5-5.7) LVIDs 3.1 (2.0-3.5) %FS 37% LVPWd 1.1 (0.6-1.2) Ao Diam 2.7 (2.0-3.7) 2 DIMENSIONAL ASSESSMENT: RIGHT ATRIUM: NORMAL LEFT ATRIUM: NORMAL RIGHT VENTRICLE: NORMAL LEFT VENTRICLE: APPEARS NORMAL TRICUSPID VALVE: NORMAL MITRAL VALVE: NORMAL PULMONIC VALVE: NOT WELL SEEN AORTIC VALVE: NORMAL PERICARDIAL EFFUSION: LARGE, EARLY TAMPONADE AORTIC ROOT: NORMAL LEFT VENTRICULAR WALL MOTION: POOR WINDOWS BUT LEFT VENTRICULAR EJECTION FRACTION APPEARS NORMAL. DOPPLER/COLOR FLOW: SEE BELOW. COMMENTS: LARGE PERICARDIAL EFFUSION WITH EARLY SIGNS OF TAMPONADE (RIGHT VENTRICULAR/ RIGHT ATRIAL COLLAPSE). LEFT VENTRICULAR EJECTION FRACTION TO BE NORMAL. TECHNOLOGIST: WILLOW JEONG
[2019-12-22] MEDS ORDERED: levoFLOXacin 250 MG TAB PO SCH (09:00)
[2019-12-22] MEDS ORDERED: SERTRALINE HCL 100 MG TAB PO SCH (09:00)
[2019-12-22] MEDS: ASCORBIC ACID 500 MG TABLET PO SCH (09:46)
[2019-12-22] MEDS: ENOXAPARIN 30 MG/0.3 ML SQ SCH (09:46)
[2019-12-22] MEDS: DOXYCYCLINE 100 MG CAP PO SCH (09:46)
[2019-12-22] MEDS: ZINC SULFATE 220 MG CAP PO SCH (09:46)
[2019-12-22] MEDS: SEVELAMER CARBONATE 800 MG TABLET PO SCH ×2 (09:47→12:00)
[2019-12-22] MEDS: predniSONE 10 MG TAB PO SCH (09:47)
[2019-12-22] MEDS: FUROSEMIDE 40 MG/4 ML VIAL IV SCH (09:47)
[2019-12-22] MEDS: DULERA 200/5 (MOMETASONE/FORMOTEROL) INHALER IH SCH (09:48)
[2019-12-22] MEDS: INSULIN -REGULAR HUMAN 50 UNIT/0.5 ML ML SQ SCH ×2 (09:50→11:54)
--- NOTE | 2019-12-22 11:11 | ECHO ---
HEIGHT: 6 ft 0 in WEIGHT: 196 lb 14.4 oz DATE OF STUDY: 12/22/[address]: Tyree Mark MD 2-DIMENSIONAL: YES M.MODE: YES DOPPLER: YES COLOR FLOW: YES TDS: NO PORTABLE: NO DEFINITY: NO BUBBLE STUDY: NO DIAGNOSIS: FOLLOW UP ON PERICARDIAL EFFUSION CARDIAC HISTORY: CATHERIZATION: YES SURGERY: NO PROSTHETIC VALVE: NO PACEMAKER: NO MEASUREMENTS (cm) DIASTOLIC (NORMALS) SYSTOLIC (NORMALS) IVSd 1.2 (0.6-1.2) LA Diam 3.2 (1.9-4.0) LVEF 52% LVIDd 3.5 (3.5-5.7) LVIDs 2.6 (2.0-3.5) %FS 26% LVPWd 1.3 (0.6-1.2) Ao Diam 3.0 (2.0-3.7) 2 DIMENSIONAL ASSESSMENT: RIGHT ATRIUM: NORMAL LEFT ATRIUM: NORMAL RIGHT VENTRICLE: NORMAL LEFT VENTRICLE: NORMAL TRICUSPID VALVE: NORMAL MITRAL VALVE: NORMAL PULMONIC VALVE: NORMAL AORTIC VALVE: NORMAL PERICARDIAL EFFUSION: LARGE AORTIC ROOT: NORMAL LEFT VENTRICULAR WALL MOTION: NORMAL DOPPLER/COLOR FLOW: NORMAL COMMENTS: LARGE PERICARDIAL EFFUSION. EARLY SIGNS OF TAMPONADE, RIGHT ATRIAL COLLAPSE IN DIASTOLE. NORMAL LEFT VENTRICULAR EJECTION FRACTION. NO CHANGE FROM 12/21/2019. TECHNOLOGIST: Sanat MONCADA
--- NOTE | 2019-12-22 13:01 | PN ---
Date of Progress Note: 12/22/2019 Subjective: Patient was admitted with acute kidney injury, pneumonia. Physical Examination: Vital Signs: When I saw the patient, blood pressure 136/60, pulse of 106, afebrile. Patient is stil l oliguric, slightly on the over volume side. Chest: Crackles bilateral. Heart: S1, S2. Systolic murmur. Abdomen: Soft, nontender. Extremities: No edema. Laboratory Data: WBC 14.7, H and H 9.8/31.4, platelets 280. Sodium 131, potassium 5.6, bicarb 20, B UN 116, creatinine 4.2, GFR of 14, calcium 7.2, phosphorus 9, albumin 2.9. Serum protein electrophor esis is still pending. PTH 290, TSH 2.9. PC ratio of 0.4. Current Medications: The patient on include; 1.Doxycycline. 2.Levaquin. 3.Breathing treatment. 4.IV iron. 5.Lovenox. 6.Atorvastatin. 7.Zoloft. 8.Lasix. 9.Renvela. 10.Zinc sulfate. 11.Zofran. Assessment And Plan: 1.Acute kidney injury, multifactorial, secondary to nonsteroidal use, obstructive uropathy/cardioren al, oliguric, over volume. With the presence of pericardial effusion, I am going to be dialyzing the patient on a daily basis. We will avoid using any heparin on the dialysis and we will follow up the patient. I do not think the dialysis is going to change the presentation of the pericardial effusio n and over 24 hours, patient need daily dialysis for at least 2 weeks. If this is uremic pericardial effusion, then after that we see re-evaluation of the pericardial effusion. We will follow up with Cardiology on that. 2.Hypertension, currently blood pressure controlled. We will continue current medication. 3.Secondary hyperparathyroidism that supports the chronicity of the disease. Continue binder. No n eed for calcitriol for the time being. 4.Congestive heart failure as by Cardiology. 5.Pericardial effusion with questionable of tamponade. We will follow up with Cardiology. We will continue dialysis in a daily basis. 6.Iron-deficiency anemia. Continue IV iron. 7.Hyperkalemia. Patient is going to be dialyzed on low-potassium bath. 8.Diabetes as by primary. BERNARD/MODL Voice ID: [id number] Report ID: [id number]
--- NOTE | 2019-12-22 13:15 | P.PN ---
Subjective Date of Service: 12/22/19 Primary Care Provider: None Chief Complaint: Lung mass Subjective: Other (Patient stable this time.) Physical Examination - Vital Signs Temperature: 96.9 F Blood Pressure: 103/66 Pulse: 105 Respirations: 18 Pulse Ox (%): 95 - Physical Exam General: Alert, Cooperative HEENT: Atraumatic Neck: Supple Respiratory: Crackles/rales (Bilateral) Cardiovascular: Irregular heart rate/rhythm (AFib rate controlled) Gastrointestinal: No tenderness, No masses, No rebound, No guarding Integumentary: Tenderness/swelling (1 to 2+ pitting edema to the lower extremities) Neurological: Normal speech, Normal strength at 5/5 x4 extr, Normal tone, Normal affect - Studies Medications List Reviewed: Yes Assessment & Plan Discharge Plan: Home (Likely with hospice) Plan to discharge in: Greater than 2 days Physician Review Additional Text: Impression: Acute on chronic renal failure stage 5 now end-stage renal disease, hyperkalemia requiring emergent dialysis with ultrasound showing right-sided hydronephrosis Acute on chronic CHF likely diastolic Bilateral pleural effusion with pericardial effusion possible underlying lung cancer Chronic atrial fibrillation COPD Diabetes mellitus type 2 Hypertension Elevated liver function likely related to liver failure related to above Patient is blind Patient with difficulty hearing Plan: Acute on chronic renal failure stage 5 now end-stage renal disease, hyperkalemia requiring emergent dialysis with ultrasound showing right sided hydronephrosis: Patient had dialysis catheter placed. Patient will receive dialysis. Case discussed at length with nephrology. Continue with dialysis. Case also discuss with pulmonology, cardiology. Repeat echo shows no significant change. Pulmonology feels patient likely has underlying cancer is well. Pericardial fusion maybe uremic in nature verses cancer in nature. Case discussed at length with patient. Advanced directives readdressed along with advance care planning. Patient wishes to be do not resuscitate. Also discuss the possibility of hospice if his condition does not significantly improved. Patient is agreeable to this. Will continue to reassess closely. If no significant change or improvement will need to consider hospice in the next 2 days verses long-term a cute facility placement for daily dialysis. Acute on chronic CHF likely diastolic: Continue oxygen. Continue support. Will monitor closely. Continue dialysis Bilateral pleural effusion with large pericardial effusion possible underlying lung cancer: Spoke to Cardiology and pulmonology. Repeat echo shows no significant change. Large pericardial fusion noted. Pulmonology suspects underlying cancer. Continue as above. Will continue to reassess. Patient is a good candidate for hospice. Will readdress tomorrow. COPD: Continue with current medication. Patient on antibiotic therapy to cover for possible atypical pneumonia Chronic atrial fibrillation: Continue anti coagulation therapy Diabetes mellitus type 2 with hyperglycemia on insulin medication: Monitor sliding scale. Continue insulin as needed. Hypertension: Continue medication Hyperlipidemia: Continue medication Elevated liver function likely related to liver failure related to above: Continue as above Patient is blind: Overall stable Patient with difficulty hearing: Stable Time Spent Managing Pts Care (In Minutes): 55
[2019-12-22] MEDS ORDERED: DIGOXIN 0.25 MG/ML AMP IV ONE (14:13)
--- NOTE | 2019-12-22 14:57 | P.PN ---
Subjective Date of Service: 12/22/19 Primary Care Provider: None Chief Complaint: Lung mass Subjective: Other (Rapid response initiated as the patient blood pressure was low and heart rate was fast while in dialysis. The patient did receive IV digoxin with improvement. Blood pressure also improved after dialysis was stopped.) Physical Examination - Vital Signs Temperature: 96.9 F Blood Pressure: 103/66 Pulse: 105 Respirations: 18 Pulse Ox (%): 95 - Physical Exam General: Alert, Cooperative HEENT: Atraumatic Respiratory: Crackles/rales (Bilateral) Cardiovascular: Irregular heart rate/rhythm (AFib rate around 120) Gastrointestinal: Normal bowel sounds, No rebound, No guarding Integumentary: Tenderness/swelling (Lower extremity edema noted) - Studies Medications List Reviewed: Yes Assessment & Plan Discharge Plan: Other (Hospice inpatient) Plan to discharge in: 24 Hours Physician Review Additional Text: Impression: Acute on chronic renal failure stage 5 now end-stage renal disease, hyperkalemia requiring emergent dialysis with ultrasound showing right-sided hydronephrosis Acute on chronic CHF likely diastolic Bilateral pleural effusion with pericardial effusion possible underlying lung cancer Chronic atrial fibrillation COPD Diabetes mellitus type 2 Hypertension Elevated liver function likely related to liver failure related to above Patient is blind Patient with difficulty hearing Plan: Acute on chronic renal failure stage 5 now end-stage renal disease, hyperkalemia requiring emergent dialysis with ultrasound showing right sided hydronephrosis: Rapid response to dialysis due to low blood pressure and accelerated heart rate. Patient given IV digoxin. Patient now stable as hemodialysis was stopped. Heart rate around 100-120. Blood pressure improved. Patient was alert still with increased fatigue. I readdress advanced directives with him. He desires to be do not resuscitate. I have also discussed in detail advanced care planning with the who also expressed that the patient is do not resuscitate. She had been preparing for hospice as an outpatient. I told her that he may qualify for inpatient hospice. I discussed earlier with pulmonology, cardiology and nephrology about the plan of care. I have discussed the case in detail with nephrology at this time to pursue hospice. Will continue comfort measures at this time. Will update other physicians. Critical care/advanced care planning-time spent 30 min. Acute on chronic CHF likely diastolic: Continue oxygen. Continue support. Will monitor closely. Continue dialysis Bilateral pleural effusion with large pericardial effusion possible underlying lung cancer: Spoke to Cardiology and pulmonology. Continue supportive care. Will initiate hospice likely inpatient COPD: Continue with current medication. Chronic atrial fibrillation: Continue anti coagulation therapy Diabetes mellitus type 2 with hyperglycemia on insulin medication: Monitor sliding scale. Continue insulin as needed. Hypertension: Continue medication Hyperlipidemia: Continue medication Elevated liver function likely related to liver failure related to above: Continue as above Patient is blind: Overall stable Patient with difficulty hearing: Stable Time Spent Managing Pts Care (In Minutes): 30
[2019-12-22] MEDS ORDERED: MORPHINE 2 MG/ML SYR IV PRN (15:02)
--- NOTE | 2019-12-22 16:52 | P.PN ---
Subjective Date of Service: 12/22/19 Primary Care Provider: None Chief Complaint: Lung mass renal failure No significant change in patient's condition he now has a pericardial effusion in addition to the lung mass I suspect that is malignant pericardial effusion prognosis is overall very poor and was referred to hospice care Review of Systems General: Weakness Respiratory: Shortness of Breath Physical Examination - Vital Signs Temperature: 97.1 F Blood Pressure: 127/76 Pulse: 108 Respirations: 18 Pulse Ox (%): 92 - Physical Exam General: Alert, Moderate distress Respiratory: Expiratory wheezes Cardiovascular: No edema, Irregular heart rate/rhythm - Studies Medications List Reviewed: Yes Assessment & Plan - Problems (Diagnosis) (1) Lung mass Current Visit: Yes Status: Acute Plan: I most likely has lung cancer in addition patient has a pericardial effusion was likely malignant referred to hospice care (2) Acute renal insufficiency Current Visit: Yes Status: Acute Plan: On dialysis
[2019-12-22] MEDS: ALBUTEROL INHALER 60 PUFF/8 GM IH PRN (21:07)
--- NOTE | 2019-12-22 23:52 | PN ---
Date of Progress Note: 12/22/2019 History Of Present Illness: Mr. Sloan is being seen today, 12/22/2019, for a large pericardial effu amauri, early tamponade. He remains slightly tachycardic, but not hypotensive, actually asymptomatic. The case was discussed in detail with the family by Dr. Mack and Dr. Isidro. I discussed the ca se with Dr. Isidro and Dr. Mack as well. It seems that his pericardial effusion may be secondary to uremia, but it is also possible that he has lung cancer as well. I think the decision was made t o make him a do not resuscitate and pursue the hospice care. I will sign off his case. I agree with his present regimen. KIMBERLEE/AYESHA Voice ID: [id number] Report ID: [id number]
[2019-12-23 08:16] VITALS: TEMP 97.2
[2019-12-23] MEDS: ENOXAPARIN 30 MG/0.3 ML SQ SCH (08:41)
[2019-12-23 09:20] VITALS: O2SAT 98
[2019-12-23 12:07] VITALS: BP 125/72
--- NOTE | 2019-12-23 15:32 | P.DS ---
Admission Date: 12/18/19 Discharge Date: 12/23/19 Primary Care Provider: None Disposition: ROUTINE DISCHARGE Discharge Condition: FAIR Reason for Admission: Lung mass renal failure Consultations: Pulmonology-Dr Isidro Cardiology-Dr. Mark Nephrology-Dr. Ornelas Procedures: Chest CT: FINDINGS: A moderate to large area of airspace consolidation is new right upper lobe extending from the right hilum. The areas of infiltrate extend into the right middle lobe and both posterior gutters. Loculated small right pleural effusion. Free-flowing small left pleural effusion. Moderate pericardial fluid is seen. No pneumothorax. No bulky intrathoracic adenopathy. No concerning bony finding. No gross upper abdominal finding. All CT scans are performed using dose optimization technique as appropriate and may include automated exposure control or mA/KV adjustment according to patient size. IMPRESSION: Extensive right-sided pneumonia pattern is suspected. There is loculated right pleural effusion seen. Left base infiltrate is also present with a small left pleural effusion. Moderate pericardial effusion. ECHO: EF 67% LEFT VENTRICULAR WALL MOTION: POOR WINDOWS BUT LEFT VENTRICULAR EJECTION FRACTION APPEARS NORMAL. DOPPLER/COLOR FLOW: SEE BELOW. COMMENTS: LARGE PERICARDIAL EFFUSION WITH EARLY SIGNS OF TAMPONADE (RIGHT VENTRICULAR/ RIGHT ATRIAL COLLAPSE). LEFT VENTRICULAR EJECTION FRACTION TO BE NORMAL. Surgery: Dialysis catheter placement Medical Problem List: Acute on chronic renal failure stage 5 now end-stage renal disease, hyperkalemia requiring emergent dialysis with ultrasound showing right-sided hydronephrosis Acute on chronic CHF likely diastolic Bilateral pleural effusion with large pericardial effusion with extensive right- sided pneumonia likely postobstructive suspect underlying lung cancer Chronic atrial fibrillation COPD Diabetes mellitus type 2 Hypertension Elevated liver function likely related to liver failure related to above Patient is blind Patient with difficulty hearing Brief History of Present Illness: 79-year-old male with multiple medical problems presented to the emergency room with increasing shortness of breath. CT scan revealed bilateral pleural effusions with pericardial effusion and right large pneumonia. Patient was admitted for further evaluation. Hospital Course: Patient presented with increasing shortness of breath. Patient with multiple medical problems including chronic renal failure, CHF, chronic atrial fibrillation, COPD, diabetes mellitus type 2, hypertension. CT scan revealed extensive right-sided pneumonia with bilateral pleural effusions and large pericardial effusion. Other medical issues included acute on chronic renal failure stage 5 now with end-stage renal disease with hyperkalemia requiring emergent dialysis. Patient also had acute on chronic diastolic CHF. Patient seen evaluated by multiple specialists including cardiology, pulmonology and nephrology. Patient did require emergent dialysis due to hyperkalemia and worsening renal function. Dialysis catheter was placed. Repeat echo still showed large pericardial effusion. Vital signs were stable the patient was trialed on dialysis but blood pressure was low and the patient became tachycardic. Patient was given digoxin. The patient was then stabilize. After extensive discussion with nephrology, cardiology and pulmonary, his status was readdressed. Considerations included sending patient to long-term acute care [facility] for continued dialysis to help with pericardial effusion. Other measures included sending to [facility] for pericardial window or for pericardiocentesis. After long discussion with the patient he preferred just comfort measures. Advanced directives and advanced care planning was addressed at that time. Patient understands that his chronic condition is worsening. Patient wishes to be do not resuscitate. I also discuss this with the who agreed. Apparently the had been preparing for hospice as an outpatient. This was further discussed with the patient. Patient agrees with hospice. Due to his current declining condition the patient will transition to inpatient hospice to make him comfortable. Vital Signs/Physical Exam: Temp Pulse Resp BP Pulse Ox 97.2 F 113 H 18 125/72 95 12/23/19 12:00 12/23/19 12:00 12/23/19 12:00 12/23/19 12:00 12/23/19 12:00 General: Alert HEENT: Atraumatic Neck: Supple Respiratory: Crackles/rales Cardiovascular: Irregular heart rate/rhythm (a fib rate controlled. ) Musculoskeletal: No erythema, No tenderness, No warmth Integumentary: No tenderness/swelling, No erythema, No warmth, No cyanosis Neurological: Normal speech, Normal strength at 5/5 x4 extr, Normal tone, Normal affect Laboratory Data at Discharge: WBC 14.7 K/uL (4.3-10.9) H D 12/21/19 05:13 Hgb 9.8 g/dL (13.6-17.9) L 12/21/19 05:13 Hct 31.4 % (39.6-49.0) L 12/21/19 05:13 Plt Count 280 K/uL (152-406) 12/21/19 05:13 PT 15.7 SECONDS (9.5-12.5) H 12/21/19 05:13 INR 1.34 12/21/19 05:13 APTT 38.7 SECONDS (24.3-36.9) H 12/21/19 05:13 Sodium 131 mmol/L (136-145) L 12/22/19 05:16 Potassium 5.6 mmol/L (3.5-5.1) H* 12/22/19 05:16 BUN 116 mg/dL (7-18) H 12/22/19 05:16 Creatinine 4.23 mg/dL (0.55-1.3) H 12/22/19 05:16 Glucose 176 mg/dL (74-106) H 12/22/19 05:16 Uric Acid 11.6 mg/dL (3.5-7.2) H 12/20/19 07:25 Phosphorus 9.0 mg/dL (2.5-4.9) H* 12/22/19 05:16 Magnesium 2.8 mg/dL (1.8-2.4) H 12/21/19 05:13 Total Bilirubin 0.2 mg/dL (0.2-1.0) 12/20/19 07:25 AST 74 U/L (15-37) H 12/20/19 07:25 ALT 117 U/L (12-78) H 12/20/19 07:25 Alkaline Phosphatase 95 U/L (45-117) 12/20/19 07:25 Troponin I < 0.02 ng/mL (0.0-0.045) 12/21/19 05:13 Triglycerides 80 mg/dL (<150) 12/19/19 05:40 Cholesterol 95 mg/dL (<200) 12/19/19 05:40 HDL Cholesterol 50 mg/dL (40-60) 12/19/19 05:40 Cholesterol/HDL Ratio 1.90 12/19/19 05:40 Lipase 43 U/L (73-393) L 12/18/19 21:05 Home Medications: Insulin NPH Human Isophane [Novolin N] 15 units SQ BID 12/19/19 Lisinopril [Zestril] 1 tab PO DAILY 12/19/19 Metformin HCl 1 tab PO BID 12/19/19 Pravastatin Sodium 1 tab PO BEDTIME 12/19/19 Sertraline [Zoloft*] 1 tab PO DAILY 12/19/19 Tamsulosin HCl [Flomax] 1 tab PO DAILY 12/19/19 Patient Discharge Instructions: patient to enter inpatient hospice. Diet: comfort Activity: Bedrest Followup: Alonso Isidro MD [ACTIVE - CAN ADMIT] - Time spent managing pt's care (in minutes): 55
--- NOTE | 2019-12-23 17:24 | PN ---
Date of Progress Note: 12/23/2019 Subjective: Patient was admitted with acute kidney injury secondary to nonsteroidal. Patient found to have pericardial effusion. We tried to place the patient on dialysis. Patient had low blood pressure yesterday on dialysis with AFib. Physical Examination: Vital Signs: Blood pressure 125/72, pulse 113, afebrile. Chest: Crackles bilateral. Heart: S1, S2. Tachy. Abdomen: Soft, nontender. Extremities: No edema. Laboratory Data: H and H 9.8/31.4. Sodium 131, potassium 5.6, bicarb 20, BUN 116, creatinine 4.2, phosphorus 9. Medications: Morphine, albuterol, Tylenol, Lovenox. Assessment And Plan: 1. Acute kidney injury, anuric, over volume, could not tolerate the dialysis. Apparently, family decided for comfort care. We will stop dialysis. We will sign off. We will follow up if situation changes. 2. Hypertension as above. 3. pericadial effusion f/u with cardiology MA/MODL Voice ID: [id number] Report ID: [id number] WILLIAMS
[2019-12-26 22:54] LABS: Vitamin D 1,25-Dihydroxy Total 10 pg/mL (18-72); Vitamin D,1,25-OH2, D2 <8 pg/mL
[2019-12-28 01:54] LABS: HBsAG Nonreactive (Nonreactive)
[2019-12-28 20:30] LABS: Hepatitis C Virus RNA (PCR)log <1.18 log IU/mL
[2019-12-28 22:10] LABS: Albumin, (SPE) 3.3 g/dL (3.8-4.8); Alpha-1-Globulins 0.4 g/dL (0.2-0.3); Gamma Globulins 0.7 g/dL (0.8-1.7); INTERPRETATION REPORT
== END 2019-12-23 16:26 | disposition hospice, inpatient (51) | DRG 673 ==
LOC: ER 19:48 → ERHOLD 22:41 → 4TH 23:53 → 2ND 12-20 18:50
PROVIDERS: ADMIT Hospitalist; ATTEND Family Medicine
PROC: 8E0ZXY6 Isolation (ICD-10-PCS; 2019-12-18)
PROC: 02HV33Z Insertion of Infusion Device into Superior Vena Cava, Percutaneous Approach (ICD-10-PCS; 2019-12-21)
PROC: 5A1D70Z Performance of Urinary Filtration, Intermittent, Less than 6 Hours Per Day (ICD-10-PCS; 2019-12-21)
PROC: 0JH60XZ Insertion of Tunneled Vascular Access Device into Chest Subcutaneous Tissue and Fascia, Open Approach (ICD-10-PCS; principal; 2019-12-21 13:30)
DX: N17.9 Acute kidney failure, unspecified (principal); J18.9 Pneumonia, unspecified organism; I50.33 Acute on chronic diastolic (congestive) heart failure; C34.90 Malignant neoplasm of unspecified part of unspecified bronchus or lung; E87.2 Acidosis; J44.1 Chronic obstructive pulmonary disease with (acute) exacerbation; I31.3 Pericardial effusion (noninflammatory); I13.2 Hypertensive heart and chronic kidney disease with heart failure and with stage 5 chronic kidney disease, or end stage renal disease; I48.20 Chronic atrial fibrillation, unspecified; J44.0 Chronic obstructive pulmonary disease with (acute) lower respiratory infection; Z90.49 Acquired absence of other specified parts of digestive tract; H54.7 Unspecified visual loss; N28.9 Disorder of kidney and ureter, unspecified; I87.8 Other specified disorders of veins; E78.5 Hyperlipidemia, unspecified; E87.5 Hyperkalemia; T39.395A Adverse effect of other nonsteroidal anti-inflammatory drugs [NSAID], initial encounter; R34 Anuria and oliguria; D63.1 Anemia in chronic kidney disease; D50.9 Iron deficiency anemia, unspecified; Z79.4 Long term (current) use of insulin; Z79.899 Other long term (current) drug therapy; E11.22 Type 2 diabetes mellitus with diabetic chronic kidney disease; N18.6 End stage renal disease; N13.30 Unspecified hydronephrosis; K72.90 Hepatic failure, unspecified without coma; R79.89 Other specified abnormal findings of blood chemistry; E11.65 Type 2 diabetes mellitus with hyperglycemia; Z66 Do not resuscitate; N25.81 Secondary hyperparathyroidism of renal origin; Z20.828 Contact with and (suspected) exposure to other viral communicable diseases; R06.02 Shortness of breath; R05 Cough; Z87.891 Personal history of nicotine dependence
CPT/HCPCS: 36415; 71045; 71250; 76000; 76770; 80048; 80053; 80061; 80069; 80076; 81003; 81015; 82550; 82570; 82607; 82652; 82728; 82746; 82947; 83520; 83540; 83605; 83690; 83735; 83880; 83970; 84100; 84145; 84156; 84165; 84443; 84466; 84484; 84550; 85025; 85044; 85379; 85610; 85730; 86021; 86038; 86140; 86160; 86225; 86317; 86430; 86704; 86705; 86706; 87040; 87070; 87081; 87205; 87340; 87522; 87804; 88108; 90935; 93005; 93306; 93971; 94760; 96374; 96375; 99285; C1752; J0456; J0696; J1100; J1160; J1644; J1650; J1940; J2270; J2370; J2704; J2916; J7030; J7040; J7512; J7606; P9047; U0002

== ENCOUNTER 2019-12-23 16:28 | Inpatient (IN) | payer OTHER ==
[2019-12-23] MEDS ORDERED: MORPHINE 2 MG/ML SYR IV PRN (16:57)
[2019-12-23] MEDS ORDERED: LORazepam 2 MG/ML VIAL IV PRN (17:00)
[2019-12-23] MEDS: LORazepam 2 MG/ML VIAL IV SCH ×2 (17:00→20:35)
[2019-12-23] MEDS ORDERED: ONDANSETRON 4 MG/2 ML VIAL IV PRN (17:01)
[2019-12-23] MEDS ORDERED: SCOPOLAMINE HYDROBROMIDE PATCH TD SCH (18:00)
[2019-12-23 18:21] VITALS: BMI 28.0
[2019-12-24] MEDS: LORazepam 2 MG/ML VIAL IV SCH ×3 (00:35→09:00)
[2019-12-24 09:16] VITALS: BP 117/58; TEMP 94.6
[2019-12-24 12:40] VITALS: O2SAT 97
== END 2019-12-24 10:15 | disposition expired | DRG 951 ==
LOC: 2ND 16:28
PROVIDERS: ADMIT Internal Medicine Hematology & Oncology; ATTEND Internal Medicine Hematology & Oncology
DX: Z51.5 Encounter for palliative care (principal); E11.9 Type 2 diabetes mellitus without complications; J44.9 Chronic obstructive pulmonary disease, unspecified; I10 Essential (primary) hypertension; H54.7 Unspecified visual loss; Z90.49 Acquired absence of other specified parts of digestive tract; Z87.891 Personal history of nicotine dependence
CPT/HCPCS: 82947